=== PATIENT | male | born 1960 | race Caucasian/White ===

== ENCOUNTER 2023-08-24 11:52 | Outpatient (REF) | payer OTHER, SELFPAY ==
[2023-08-24 18:54] LABS: HCT 46.1 % (40.0-50.0); HGB 15.1 g/dL (13.5-17.5); MCH 30.9 pg (27.0-33.0); MCHC 32.8 % (32.0-36.0); MCV 94 fL (80-95); MPV 9.7 fL (8.0-11.0); Platelet Count 304 10^3/uL (130-400); RBC 4.89 10^6/uL (4.36-5.78); RDW 13.1 % (11.8-14.1); RDW-SD 45.6 fL; WBC 6.51 10^3/uL (4.4-10.8)
[2023-08-24 19:01] LABS: Iron 126 ug/dL (65-175); Total Iron Binding Capacity 296 ug/dL (250-450); Transferrin Sat 43 % (20-55)
[2023-08-24 19:19] LABS: ALT 39 U/L (16-63); AST 31 U/L (15-37); Albumin 3.8 g/dL (3.4-5.0); Alkaline Phosphatase 81 U/L (46-116); Anion Gap 8.1 mmol/L (3-11); BUN 21 mg/dL (7-18); Bilirubin, Total 0.9 mg/dL (0.2-1.0); CO2 27.9 mmol/L (21.0-32.0); Calcium 8.9 mg/dL (8.5-10.1); Calculated LDL 144 mg/dL (<100); Chloride 103 mmol/L (98-107); Cholesterol 222 mg/dL (<200); Estimated GFR 85.63 (mL/min/1.73m2); Ferritin 207 ng/mL (26-388); Glucose 104 mg/dL (74-106); HDL Cholesterol 52 mg/dL (40-60); Potassium 4.7 mmol/L (3.5-5.1); Sodium 139 mmol/L (136-145); TSH (W/Ref FT4) 2.98 uIU/mL (0.36-3.74); Triglyceride 131 mg/dL (<150)
== END 2023-08-24 11:53 | disposition home or self-care (01) ==
LOC: NCHCN 11:52
PROVIDERS: PCP Family Medicine Adult Medicine; Visit Provider Nurse Practitioner Family
DX: E78.2 Mixed hyperlipidemia (principal); E03.9 Hypothyroidism, unspecified; E83.110 Hereditary hemochromatosis
CPT/HCPCS: 80053; 80061; 85027; 82728; 83540; 83550; 84443

== ENCOUNTER 2024-09-24 09:23 | Outpatient (REF) | payer OTHER, SELFPAY ==
[2024-09-23 22:21] LABS: Abs Immature Grans 0.01 10^3/uL (0.0-0.06); Absolute Basophil Count 0.06 10^3/uL (0.0-0.2); Absolute Eosinophil Count 0.09 10^3/uL (0.0-0.7); Absolute Lymphocyte Count 1.88 10^3/uL (1.2-3.4); Absolute Monocyte Count 0.49 10^3/uL (0.1-0.8); Absolute Neutrophil Count 4.41 10^3/uL (1.2-6.7); Basophils % 0.9 %; Eosinophils % 1.3 %; HCT 46.1 % (40.0-50.0); HGB 15.3 g/dL (13.5-17.5); Immature Grans % 0.1 %; Lymphocytes % 27.1 %; MCH 31.6 pg (27.0-33.0); MCHC 33.2 % (32.0-36.0); MCV 95 fL (80-95); MPV 9.9 fL (8.0-11.0); Monocytes % 7.1 %; Neutrophils % 63.5 %; Platelet Count 317 10^3/uL (130-400); RBC 4.84 10^6/uL (4.36-5.78); RDW 13.2 % (11.8-14.1); RDW-SD 46.7 fL; WBC 6.94 10^3/uL (4.4-10.8)
[2024-09-23 22:34] LABS: Iron 136 ug/dL (65-175); Total Iron Binding Capacity 312 ug/dL (250-450); Transferrin Sat 44 % (20-55)
[2024-09-23 22:45] LABS: ALT 58 U/L (16-63); AST 44 U/L (15-37); Albumin 3.9 g/dL (3.4-5.0); Alkaline Phosphatase 76 U/L (46-116); Anion Gap 10.2 mmol/L (3-11); BUN 20 mg/dL (7-18); Bilirubin, Total 0.79 mg/dL (0.2-1.0); CO2 25.8 mmol/L (21.0-32.0); Calcium 9.2 mg/dL (8.5-10.1); Calculated LDL 150 mg/dL (<100); Chloride 104 mmol/L (98-107); Cholesterol 244 mg/dL (<200); Ferritin 249 ng/mL (26-388); Glucose 104 mg/dL (74-106); HDL Cholesterol 59 mg/dL (40-60); Potassium 4.4 mmol/L (3.5-5.1); Sodium 140 mmol/L (136-145); TSH 3.24 uIU/mL (0.36-3.74); Total Protein 7.6 g/dL (6.4-8.2); Triglyceride 178 mg/dL (<150)
--- OUTSIDE RECORDS SUMMARY | 2024-09-24 09:30 | XMS_ITS | Encounter Summary ---
Author Organization [facility] [place] [address] Care Team Providers Care Boiler Or Engine Operator Name Role Phone Boris Torres MD Primary Care Provider [phone] Reason for Visit * Reason Onset Date Comments Results 01/31/2012 [email or web address] 01-31-2012 Encounter Details Date Type Department Care Team (Late st Contact Info) Description 01/31/2012 Telephone [facility] [address] [place] [address] Mateus Abreu Jr., MD [address] [place] [address] Results ([email or web address] 01-31-2012) Social History Tobacco Use Types Packs/Day Years Used Date Smoking Tobacco: Former Cigarettes 0 04/26/1978 - 04/26/2008 Sex and Gender Information Value Date Recorded Sex Assigned at Not on file Gender Identity Not on file Sexual Orientation Not on file documented as of this encounter Miscellaneous Notes * Telephone Encounter - Heidi Holm - 02/07/2012 10:57 AM EDT Pt was called and message was given to the pt's that a Holter was set up for 02/27/12 at the [facility] and a f/u visit with Dr Abreu on 03/08/12 at 9:00 am at the [facility]. * Telephone Encounter - Amy Mathews RN - 02/01/2012 9:57 AM EST Pt called and results given. Heidi will call with appts at a later date. * Telephone Encounter - Amy Mathews RN - 02/01/2012 9:49 AM EST Heidi is working on scheduling holter and OV * Telephone Encounter - Amy Mathews RN - 02/01/2012 9:39 AM EST Left a mess for him to call * Telephone Encounter - Mateus Abreu Jr., MD - 01/31/2012 4:39 PM EST Echo showed normal heart size and function, mild TR (within normal limits) So nothing there to cause afib Continue meds, set up holter for 3 weeks from now with ov to follow Please let him know and schedule above documented in this encounter Plan of Treatment Not on file documented as of this encounter Visit Diagnoses Not on filedocumented in this encounter Care Teams Boiler Or Engine Operator Relationship Specialty Start Date End Date Boris Torres MD [address] [address] PCP - General 10/18/10 11/25/18 documented as of this encounter
--- OUTSIDE RECORDS SUMMARY | 2024-09-24 09:30 | XMS_ITS | Encounter Summary ---
Author Organization [facility] [place] [address] Care Team Providers Care Cable Worker Helper Name Role Phone Boris Torres MD Primary Care Provider [phone] Encounter Details Date Type Department Care Team (Late st Contact Info) Description 01/29/2012 External Results [facility] [address] [place] [address] Suyapa Randall, RN Social History Tobacco Use Types Packs/Day Years Used Date Smoking Tobacco: Never Assessed Sex and Gender Information Value Date Recorded Sex Assigned at Not on file Gender Identity Not on file Sexual Orientation Not on file documented as of this encounter Plan of Treatment Not on file documented as of this encounter Procedures Procedure Name Priority Date/Time Associated Diagnosis Comments EXTERNAL LAB RESULTS Routine 01/28/2012 documented in this encounter Results * External Lab Results (01/28/2012) Alanine Aminotransferase 29 10 - 40 Aspartate Aminotransferase 31 14 - 40 Historical Provider CHEMISTRY ORDERAB LES documented in this encounter Visit Diagnoses Not on filedocumented in this encounter Care Teams Cable Worker Helper Relationship Specialty Start Date End Date Boris Torres MD [facility] [address] [place] [address] PCP - General 10/18/10 11/25/18 documented as of this encounter
--- OUTSIDE RECORDS SUMMARY | 2024-09-24 09:30 | XMS_ITS | Encounter Summary ---
Author Organization [facility] Address [address] [place] [address] Care Team Providers Care Marine Engineering Teacher Name Role Phone Tiara Tompkins MD Primary Care Provider [phone] Encounter Details Date Type Department Care Team (Late st Contact Info) Description 03/12/2013 Results Only [facility] - [facility] ([facility]) [address] [place], [place] [id number] Mark Giron MD [address] [place] [address] Social History Tobacco Use Types Packs/Day Years Used Date Smoking Tobacco: Never Assessed Sex and Gender Information Value Date Recorded Sex Assigned at Not on file Gender Identity Not on file Sexual Orientation Not on file documented as of this encounter Plan of Treatment Not on file documented as of this encounter Procedures Procedure Name Priority Date/Time Associated Diagnosis Comments SURGICAL PATHOLOGY Routine 03/12/2013 9:45 EDT documented in this encounter Results * SURGICAL PATHOLOGY (03/12/2013 9:45 EDT) Pathology Report: SURGICAL PATHOLOGY REPORT Reports generated via electronic interface contain original data; however they are lacking the format of the original report. Caution should be taken when reading/interpreti ng unformatted reports. Name: ? MARIELOS APODACA ? Accession #: ? [id number] ? : ? 1960 (Age: 52) ??M ? Collect Date: ? 03/12/2013 ? Location: ? [facility] ? Receive Date: ? 03/12/2013 ? Provider: MARK GIRON MD Copy to: TIARA TOMPKINS MD ? Final Pathologic Diagnosis: A. ?Colon, ascending, polyp, biopsy: 1. ?Tubular adenoma. B. ?Colon, transverse, ? polyp, biopsy: 1. ?Colonic mucosa with no specific pathologic features. See comment. C. ?Colon, sigmoid, polyp, biopsy: 1. ?Tubular adenoma. D. ?Rectum, polyp, biopsy: 1. ?Hyperplastic polyp. Comment: ? Deeper levels were reviewed on block (B). ??(Dr. Lin)/[facility] Document reviewed and electronically signed by: BRUCE CARDOZO MD Report ??Date: 03/17/2013 18:25 By the signature above, the attending physician certifies that he/she has personally conducted a gross and/or microscopic examination of the described specimens and rendered or confirmed the above diagnosis. Specimen(s) Received: A. ?Ascending colon polyp B. ? Transverse colon polyp C. ? Sigmoid polyp D. ? Rectal polyp Clinical History: ? Colorectal screen; D. ? SSA Gross Description: ? Received in formalin labelled Apodaca, Marielos and ascending colon polyp is a single, 0.5 x 0.3 x 0.2 cm, pink-reyna, irregular soft tissue submitted in toto as (A1). Received in formalin labelled Apodaca, Marielos and ? transverse colon polyp are two pink-reyna, irregular soft tissues, 0.4 x 0.3 x 0.1 cm and 0.6 x 0.2 x 0.1 cm. The specimen is entirely submitted as (B1). Received in formalin labelled Apodaca, Marielos and sigmoid polyp is a single, 0.2 x 0.2 x 0.2 cm, pink-reyna, irregular soft tissue submitted in toto as (C1). Received in formalin labelled [place]odaca, Marielos and rectal polyp is a single, 0.3 x 0.2 x 0.2 cm, pink-reyna, irregular soft tissue submitted in toto as (D1). (Eloy Villarreal)/[facility] End of Report RAUL OSCAR 03/12/2013 9:45 EDT 03/12/2013 9:45 EDT Mark Giron MD PATHOLOGY ORDERABLES Performing Organization Address City/State/[facility] Co de Phone Number [facility] [address] [place] [address] documented in this encounter Visit Diagnoses Not on filedocumented in this encounter Care Teams Marine Engineering Teacher Relationship Specialty Start Date End Date Tiara Tompkins MD [address] [place] [address] PCP - General 03/13/13 documented as of this encounter
--- OUTSIDE RECORDS SUMMARY | 2024-09-24 09:30 | XMS_ITS | Referral Summary ---
Author Organization [facility] Address [address] [place] [address] Care Team Providers Care Insulation Cupola Operator Name Role Phone Boris Torres MD Primary Care Provider [phone] Social History Tobacco Use Types Packs/Day Years Used Date Smoking Tobacco: Never Assessed Sex and Gender Information Value Date Recorded Sex Assigned at Not on file Gender Identity Not on file Sexual Orientation Not on file Plan of Treatment Not on file Care Teams Insulation Cupola Operator Relationship Specialty Start Date End Date oBris Torres MD [address] [place] [address] PCP - General 03/13/13
--- OUTSIDE RECORDS SUMMARY | 2024-09-24 09:30 | XMS_ITS | Encounter Summary ---
Author Organization [facility] [place] [address] Care Team Providers Care Cost Accounting Clerk Name Role Phone Boris Torres MD Primary Care Provider [phone] Reason for Visit * Reason Comments Follow-up f/u after holter Encounter Details Date Type Department Care Team (Late st Contact Info) Description 03/08/2012 9:00 AM EDT Follow-Up [facility] [address] [place] [address] Mateus Abreu Jr., MD [address] [place] [address] A-fib (Primary Dx) Social History Tobacco Use Types Packs/Day Years Used Date Smoking Tobacco: Former Cigarettes 0 04/26/1978 - 04/26/2008 Sex and Gender Information Value Date Recorded Sex Assigned at Not on file Gender Identity Not on file Sexual Orientation Not on file documented as of this encounter Last Filed Vital Signs Vital Sign Reading Time Taken Comments Blood Pressure 104/60 03/08/2012 9:08 AM EDT left arm standing Pulse 64 03/08/2012 9:01 AM EDT per ECG Temperature - - Respiratory Rate - - Oxygen Saturation - - Inhaled Oxygen Concentration - - Weight 100.7 kg (222 lb) 03/08/2012 9:0 1 AM EDT Height 182.9 cm (6') 03/08/2012 9:01 AM EDT Body Mass Index 30.11 03/08/2012 9:01 AM EDT documented in this encounter Progress Notes * Mateus Abreu Jr., MD - 03/08/2012 9:21 AM EDT Subjective: Patient ID: Shekhar Edge is a 51 y.o. male. HPI He is feeling well and denies cardiac symptoms. He is doing all his usual activities comfortably. He stopped pradaxa after his holter showed no afib. ROS denies Allergies Allergen Reactions ??? Bactrim (Sulfamethoxazole-trimethoprim) Aches, fever ??? Sulfur Current outpatient prescriptions Medication Sig Dispense Refill ??? PRAMIPEXOLE DI-HCL (MIRAPEX ORAL) Take 50 mg by mouth every evening. ??? metoprolol succinate (TOPROL-XL) 50 mg 24 hr tablet Take 0.5 tablets by mouth daily. 30 tablet ??? ibuprofen (ADVIL;MOTRIN) 800 mg tablet Take 800 mg by mouth every 6 hours as needed. Patient Active Problem List Diagnoses ??? Paroxysmal atrial fibrillation ??? Restless leg syndrome Objective: BP 104/60 Pulse 64 Ht 182.9 cm (6') Wt 100.699 kg (222 lb) BMI 30.11 kg/m2 Physical Exam NAD No JVD/HJR Chest clear Cor RR, 1/6 systolic murmur Abd benign Ext no edema EKG: NSR 64, normal intervals Assessment and Plan: Continue beta reginald, start ASA 325mg for embolism protection Follow up 6 months documented in this encounter Miscellaneous Notes * Communication Body - Mateus Abreu Jr., MD - 03/08/2012 9:25 AM EDT Subjective: Patient ID: Shekhar Edge is a 51 y.o. male. HPI He is feeling well and denies cardiac symptoms. He is doing all his usual activities comfortably. He stopped pradaxa after his holter showed no afib. ROS denies Allergies Allergen Reactions ??? Bactrim (Sulfamethoxazole-trimethoprim) Aches, fever ??? Sulfur Current outpatient prescriptions Medication Sig Dispense Refill ??? PRAMIPEXOLE DI-HCL (MIRAPEX ORAL) Take 50 mg by mouth every evening. ??? metoprolol succinate (TOPROL-XL) 50 mg 24 hr tablet Take 0.5 tablets by mouth daily. 30 tablet ??? ibuprofen (ADVIL;MOTRIN) 800 mg tablet Take 800 mg by mouth every 6 hours as needed. Patient Active Problem List Diagnoses ??? Paroxysmal atrial fibrillation ??? Restless leg syndrome Objective: BP 104/60 Pulse 64 Ht 182.9 cm (6') Wt 100.699 kg (222 lb) BMI 30.11 kg/m2 Physical Exam NAD No JVD/HJR Chest clear Cor RR, 1/6 systolic murmur Abd benign Ext no edema EKG: NSR 64, normal intervals Assessment and Plan: Continue beta reginald, start ASA 325mg for embolism protection Follow up 6 months documented in this encounter Plan of Treatment Not on file documented as of this encounter Visit Diagnoses Diagnosis A-fib- Primary Atrial fibrillation documented in this encounter Care Teams Cost Accounting Clerk Relationship Specialty Start Date End Date Boris Torres MD [address] [address] PCP - General 10/18/10 11/25/18 documented as of this encounter
--- OUTSIDE RECORDS SUMMARY | 2024-09-24 09:30 | XMS_ITS | Encounter Summary ---
Author Organization [facility] [place] [address] Care Team Providers Care Rock Loader Name Role Phone Boris Torres MD Primary Care Provider [phone] Encounter Details Date Type Department Care Team (Late st Contact Info) Description 01/29/2012 External Results [facility] [address] [place] [address] Suyapa Randall, RN Social History Tobacco Use [...] 01/28/2012 documented in this encounter Results * (ABNORMAL) External Lab Results (01/28/2012) Cholesterol, Total 185 Triglyceride 162(A) 40 - 160 HDL Cholesterol 41 35 - 70 LDL Cholesterol 111 Historical Provider CHEMISTRY ORDERAB LES documented in this encounter Visit Diagnoses Not on filedocumented in this encounter Care Teams Rock Loader Relationship Specialty Start Date End Date Boris Torres MD [facility] [address] [place] [address] PCP - General 10/18/10 11/25/18 documented as of this encounter
--- OUTSIDE RECORDS SUMMARY | 2024-09-24 09:30 | XMS_ITS | Encounter Summary ---
Author Organization [facility] [place] [address] Care Team Providers Care Benefit Authorizer Name Role Phone Boris Torres MD Primary Care Provider [phone] Encounter Details Date Type Department Care Team (Late st Contact Info) Description 01/29/2012 Abstract [facility] [address] [place] [address] Suyapa Randall, RN Social History Tobacco Use [...] on filedocumented in this encounter Care Teams Benefit Authorizer Relationship Specialty Start Date End Date Boris Torres MD [facility] [address] [place] [address] PCP - General 10/18/10 11/25/18 documented as of this encounter
--- OUTSIDE RECORDS SUMMARY | 2024-09-24 09:30 | XMS_ITS | Encounter Summary ---
Author Organization [facility] [place] [address] Care Team Providers Care Metal Finish Inspector Name Role Phone Boris Torres MD Primary Care Provider [phone] Encounter Details Date Type Department Care Team (Late st Contact Info) Description 01/29/2012 Telephone [facility] [address] [place] [address] Mateus Abreu Jr., MD [address] [place], [place] [id number] Social History Tobacco Use Types Packs/Day Years Used Date Smoking Tobacco: Never Assessed Sex and Gender Information Value Date Recorded Sex Assigned at Not on file Gender Identity Not on file Sexual Orientation Not on file documented as of this encounter Miscellaneous Notes * Telephone Encounter - Heidi Holm - 01/29/2012 2:44 PM EST Pt was called as well as the PCP and given an appt date of 01/31/12 at 4:00 pm per Evangelina at the [facility]. * Telephone Encounter - Cortney Andre - 01/29/2012 9:57 AM EST Patient was seen by Dr Torres yesterday and needs an appointment. Thinks patient has been in AFIB since Thursday. They were asked to send records. Please call Georgina [phone] to make the appointment. documented in this encounter Plan of Treatment Not on file documented as of this encounter Visit Diagnoses Not on filedocumented in this encounter Care Teams Metal Finish Inspector Relationship Specialty Start Date End Date Boris Torres MD [facility] [address] [place] [address] PCP - General 10/18/10 11/25/18 documented as of this encounter
--- OUTSIDE RECORDS SUMMARY | 2024-09-24 09:30 | XMS_ITS | Encounter Summary ---
Author Organization [facility] [place] [address] Care Team Providers Care Hvac Journeyman Name Role Phone Tiara Tompkins MD Primary Care Provider [phone] Encounter Details Date Type Department Care Team (Late st Contact Info) Description 02/29/2012 External Results [facility] [address] [place] [address] Mateus Abreu Jr., MD [address] [place] [address] Social History Tobacco Use Types Packs/Day Years Used Date Smoking Tobacco: Former Cigarettes 0 04/26/1978 - 04/26/2008 Sex and Gender Information Value Date Recorded Sex Assigned at Not on file Gender Identity Not on file Sexual Orientation Not on file documented as of this encounter Progress Notes * Mateus Abreu Jr., MD - 02/29/2012 11:19 AM EDT Shekhar Edge : 1960 PCP: TIARA TOMPKINS MD Holter Report- [facility], [address] [facility], [facility] [address] Date of application: 02/27/2012 Date of Scan: 02/29/2012 Date of Interpretation: 02/29/2012 Indication: afib Baseline Rhythm: NSR Symptoms: log kept- no symptoms Report: Minimum HR: 43 (sleep) Average HR: 64 Maximum HR: 99 Ventricular- VPC: 5 Couplets: 0 VT: 0 Atrial- APC: 25 Couplets: 1 SVT: 0 Summary: NSR throughout, bradycardia during sleep, rare APC and VPC, no atrial fibrillation documented in this encounter Plan of Treatment Not on file documented as of this encounter Visit Diagnoses Not on filedocumented in this encounter Care Teams Hvac Journeyman Relationship Specialty Start Date End Date Tiara Tompkins MD [address] [address] PCP - General 10/18/10 11/25/18 documented as of this encounter
--- OUTSIDE RECORDS SUMMARY | 2024-09-24 09:30 | XMS_ITS | Encounter Summary ---
Author Organization [facility] [place] [address] Care Team Providers Care Health Plan Specialist Name Role Phone Boris Torres MD Primary Care Provider [phone] Encounter Details Date Type Department Care Team (Latest Contact Info) Description 10/31/2010 8:36 AM EST - 11/01/2010 1:[address] [facility] Hospital Encounter [address] [place] [address] Ana Malhotra MD [facility] [place] [address] Discharge Disposition: Home Social History Tobacco Use Types Packs/Day Years Used Date Smoking Tobacco: Never Assessed Sex and Gender Information Value Date Recorded Sex Assigned at Not on file Gender Identity Not on file Sexual Orientation Not on file documented as of this encounter Plan of Treatment Not on file documented as of this encounter Visit Diagnoses Not on filedocumented in this encounter Care Teams Health Plan Specialist Relationship Specialty Start Date End Date Boris Torres MD [address] [address] PCP - General 10/18/10 11/25/18 documented as of this encounter
--- OUTSIDE RECORDS SUMMARY | 2024-09-24 09:30 | XMS_ITS | Encounter Summary ---
Author Organization [facility] [place] [address] Care Team Providers Care Flight Engineer Manager Name Role Phone Boris Torres MD Primary Care Provider [phone] Encounter Details Date Type Department Care Team (Late st Contact Info) Description 02/02/2012 External Results [facility] [address] [place] [address] Niki Collazo RN Social History Tobacco Use Types Packs/Day [...] encounter Results * External Lab Results (01/28/2012) T4 Total 6.01 Thyroid Stimulating Hormone 3.48 Ferritin 100.1 Historical Provider CHEMISTRY ORDERAB LES documented in this encounter Visit Diagnoses Not on filedocumented in this encounter Care Teams Flight Engineer Manager Relationship Specialty Start Date End Date Boris Torres MD [facility] [address] [place] [address] PCP - General 10/18/10 11/25/18 documented as of this encounter
--- OUTSIDE RECORDS SUMMARY | 2024-09-24 09:30 | XMS_ITS | Encounter Summary ---
Author Organization [facility] [place] [address] Care Team Providers Care Document Management Specialist Name Role Phone Unavailable Primary Care Provider Unavailabl e Encounter Details Date Type Department Care Team (Late st Contact Info) Description 08/31/2010 3:00 PM EDT Office [place] [address] Ana Malhotra MD [facility] [place] [address] Social History Tobacco Use Types Packs/Day Years [...]
--- OUTSIDE RECORDS SUMMARY | 2024-09-24 09:30 | XMS_ITS | Encounter Summary ---
Author Organization [facility] [place] [address] Care Team Providers Care Rn Telehealth Name Role Phone Tiara Tompkins MD Primary Care Provider [phone] Reason for Visit * Reason Comments Atrial Fibrillation Encounter Details Date Type Department Care Team (Late st Contact Info) Description 01/31/2012 8:00 AM EST Office Visit [facility] [address] [place] [address] Mateus Abreu Jr., MD [address] [place] [address] Atrial fib/flutter, transient (Primary Dx) Social History Tobacco Use Types Packs/Day Years Used Date Smoking Tobacco: Former Cigarettes 0 04/26/1978 - 04/26/2008 Sex and Gender Information Value Date Recorded Sex Assigned at Not on file Gender Identity Not on file Sexual Orientation Not on file documented as of this encounter Last Filed Vital Signs Vital Sign Reading Time Taken Comments Blood Pressure 102/64 01/31/2012 8:25 AM EST left arm standing Pulse 54 01/31/2012 8:30 AM EST per ECG Temperature - - Respiratory Rate - - Oxygen Saturation - - Inhaled Oxygen Concentration - - Weight 99.3 kg (219 lb) 01/31/2012 8:24 AM EST Height 182.9 cm (6') 01/31/2012 8:24 AM EST Body Mass Index 29.7 01/31/2012 8:24 AM EST documented in this encounter Progress Notes * Mateus Abreu Jr., MD - 01/31/2012 8:47 AM EST Referring PCP: TIARA TOMPKINS MD Cardiology consultation History: Shekhar Edge is a 51 y.o. old male seen at the request of TIARA TOMPKINS MD for evaluation of new onset atrial fibrillation. He has had brief episodes of fatigue and nausea over the last year but no palpitations or chest pain. On 01/25 he had the onset of nausea, fatigue, mild dyspnea, butno palpitations. This waxed and waned over the next day then progressed to chest fullness and arm aching with worse fatigue. He saw Dr. Tompkins on 01/27 and was found to be in afib. He was started on pradaxa and metoprolol, and mirapex was stopped. The nausea and aching went away by the next day but he feels more slowed down on metoprolol. He is back to doing all his chores comfortably. Allergies Allergen Reactions ??? Bactrim (Sulfamethoxazole-trimethoprim) Aches, fever ??? Sulfur Current outpatient prescriptions Medication Sig Dispense Refill ??? Magnesium 250 mg Tab Take 750 mg by mouth daily. ??? metoprolol succinate (TOPROL-XL) 50 mg 24 hr tablet Take 50 mg by mouth daily. ??? dabigatran (PRADAXA) 150 mg capsule Take 150 mg by mouth 2 times daily. ??? ibuprofen (ADVIL;MOTRIN) 800 mg tablet Take 800 mg by mouth every 6 hours as needed. Patient Active Problem List Diagnoses ??? Paroxysmal atrial fibrillation ??? Restless leg syndrome Coronary risk factors: Smoking:former, quit 3 years ago Diabetes:no Hypercholesterolemia:no Hypertension:no Family history of premature disease:both parents CAD in 70s Cardiac tests: none SH: works as a negrete, also keeps cows, lives with , no tobacco, variable caffeine ROS: all systems negative except as above Physical Exam: BP 102/64 Pulse 54 Ht 182.9 cm (6') Wt 99.338 kg (219 lb) BMI 29.70 kg/m2 General: WD, WN Skin: no rash or other lesions HEENT: no xanthoma Neck: No JVD, HJR, or carotid abnormalities, thyroid normal Lungs: Clear Cor: RR, normal S1, S2. PMI not displaced. No murmur or gallop Abd: soft, no L/S/K enlargement or bruits Ext: Pulses preserved, equal bilaterally, no edema, cyanosis or clubbing Musculoskeletal: no muscle tenderness, no joint deformities Neuro: grossly nonfocal Psych: normal affect, appropriate EKG: SB 54, normal intervals, no ST/T change Lab data: Labs Latest Ref Rng 01/28/2012 CHOLESTEROL TOTAL 185 HDL 35 - 70 41 LDL CHOLESTEROL 111 TRIGLYCERIDES 40 - 160 162 (A) K 3.8, Mg 2.1, Trop 0.01 Assessment: 1) New onset afib with unusual symptoms, now returned to NSR. He may have had brief episodes in thepast. No clear cause on exam-will need an echo to rule out structural heart disease. Ischemia unlikely given negative troponin after prolonged symptoms. If echo negative continue pradaxa for at least4 weeks then consider holter to assess for silent afib-if negative could switch to ASA 2) bradycardia-with fatigue- cut back dose of beta reginald 3) lipids- not ideal, especially triglycerides-reviewed diet-gradual weight loss Plan: 1) A discussion was held concerning the patient's chief complaints, the presumptive diagnosis(es) and the options for further evaluation and management. Reviewed the assessment above and the recommendations below in detail. 2) Cut metoprolol to 25mg QD 3) Echo today-follow up depends on result documented in this encounter Miscellaneous Notes * Communication Body - Mateus Abreu Jr., MD - 01/31/2012 10:06 AM EST Referring PCP: TIARA TOMPKINS MD Cardiology consultation History: Shekhar Edge is a 51 y.o. old male seen at the request of TIARA TOMPKINS MD for evaluation of new onset atrial fibrillation. He has had brief episodes of fatigue and nausea over the last year but no palpitations or chest pain. On 01/25 he had the onset of nausea, fatigue, mild dyspnea, butno palpitations. This waxed and waned over the next day then progressed to chest fullness and arm aching with worse fatigue. He saw Dr. Tompkins on 01/27 and was found to be in afib. He was started on pradaxa and metoprolol, and mirapex was stopped. The nausea and aching went away by the next day but he feels more slowed down on metoprolol. He is back to doing all his chores comfortably. Allergies Allergen Reactions ??? Bactrim (Sulfamethoxazole-trimethoprim) Aches, fever ??? Sulfur Current outpatient prescriptions Medication Sig Dispense Refill ??? Magnesium 250 mg Tab Take 750 mg by mouth daily. ??? metoprolol succinate (TOPROL-XL) 50 mg 24 hr tablet Take 50 mg by mouth daily. ??? dabigatran (PRADAXA) 150 mg capsule Take 150 mg by mouth 2 times daily. ??? ibuprofen (ADVIL;MOTRIN) 800 mg tablet Take 800 mg by mouth every 6 hours as needed. Patient Active Problem List Diagnoses ??? Paroxysmal atrial fibrillation ??? Restless leg syndrome Coronary risk factors: Smoking:former, quit 3 years ago Diabetes:no Hypercholesterolemia:no Hypertension:no Family history of premature disease:both parents CAD in 70s Cardiac tests: none SH: works as a negrete, also keeps cows, lives with , no tobacco, variable caffeine ROS: all systems negative except as above Physical Exam: BP 102/64 Pulse 54 Ht 182.9 cm (6') Wt 99.338 kg (219 lb) BMI 29.70 kg/m2 General: WD, WN Skin: no rash or other lesions HEENT: no xanthoma Neck: No JVD, HJR, or carotid abnormalities, thyroid normal Lungs: Clear Cor: RR, normal S1, S2. PMI not displaced. No murmur or gallop Abd: soft, no L/S/K enlargement or bruits Ext: Pulses preserved, equal bilaterally, no edema, cyanosis or clubbing Musculoskeletal: no muscle tenderness, no joint deformities Neuro: grossly nonfocal Psych: normal affect, appropriate EKG: SB 54, normal intervals, no ST/T change Lab data: Labs Latest Ref Rng 01/28/2012 CHOLESTEROL TOTAL 185 HDL 35 - 70 41 LDL CHOLESTEROL 111 TRIGLYCERIDES 40 - 160 162 (A) K 3.8, Mg 2.1, Trop 0.01 Assessment: 1) New onset afib with unusual symptoms, now returned to NSR. He may have had brief episodes in thepast. No clear cause on exam-will need an echo to rule out structural heart disease. Ischemia unlikely given negative troponin after prolonged symptoms. If echo negative continue pradaxa for at least4 weeks then consider holter to assess for silent afib-if negative could switch to ASA 2) bradycardia-with fatigue- cut back dose of beta reginald 3) lipids- not ideal, especially triglycerides-reviewed diet-gradual weight loss Plan: 1) A discussion was held concerning the patient's chief complaints, the presumptive diagnosis(es) and the options for further evaluation and management. Reviewed the assessment above and the recommendations below in detail. 2) Cut metoprolol to 25mg QD 3) Echo today-follow up depends on result documented in this encounter Plan of Treatment Not on file documented as of this encounter Visit Diagnoses Diagnosis Atrial fib/flutter, transient- Primary Atrial fibrillation documented in this encounter Care Teams Rn Telehealth Relationship Specialty Start Date End Date [place] [address] PCP - General 10/18/10 11/25/18 documented as of this encounter
--- OUTSIDE RECORDS SUMMARY | 2024-09-24 09:30 | XMS_ITS | Clinical Summary ---
Author Organization [facility] Address [address] [place] [id number] Care Team Providers Care Research Editor Name Role Phone Boris Torres MD Primary Care Provider [phone] Social History Tobacco Use Types Packs/Day Years Used Date Smoking Tobacco: Never Assessed Sex and Gender Information Value Date Recorded Sex Assigned at Not on file Gender Identity Not on file Sexual Orientation Not on file Plan of Treatment Health Maintenance Due Date Last Done Comments Hepatitis C Screen 1961 RSV Immunization ( o r 60+ Years) (1 - 1-dose 60+ series) 2021 COVID-19 Vaccine ( season) 2023 Care Teams Research Editor Relationship Specialty Start Date End Date Boris Torres MD [address] [place] [address] PCP - General 03/13/13
--- OUTSIDE RECORDS SUMMARY | 2024-09-24 09:30 | XMS_ITS | Clinical Summary ---
Author Organization [facility] [place] [address] Care Team Providers Care Musical Instrument Supervisor Name Role Phone Unknown Primary Care Provider Unavailabl e Allergies Active Allergy Reactions Criticality Noted Date Comments Sulfamethoxazole-Trimethoprim 2011 Aches, fever Sulfur 01/29/2012 Medications Medication Sig Dispensed Refills Start Date End Date Status PRAMIPEXOLE DI-HCL (MIRAPEX ORAL) Take 25 mg by mouth every evening. Active Active Problems Problem Noted Date Diagnosed Date Paroxysmal atrial fibrillation 01/31/2012 Restless leg syndrome 01/31/2012 Immunizations Name Administration Dates Next Due Influenza Vaccine, Whole 08/26/2010 Social History Tobacco Use Types Packs/Day Years Used Date Smoking Tobacco: Former Cigarettes 0 04/26/1978 - 04/26/2008 Sex and Gender Information Value Date Recorded Sex Assigned at Not on file Gender Identity Not on file Sexual Orientation Not on file Last Filed Vital Signs Vital Sign Reading Time Taken Comments Blood Pressure 140/80 10/14/2012 4:34 PM EST Pulse 60 10/14/2012 4:34 PM EST Temperature - - Respiratory Rate 16 10/14/2012 4:34 PM EST Oxygen Saturation - - Inhaled Oxygen Concentration - - Weight 102.1 kg (225 lb) 10/14/2012 4:34 PM EST Height 182.9 cm (6') 10/14/2012 4:34 PM EST Body Mass Index 30.52 10/14/2012 4:34 PM EST Plan of Treatment Health Maintenance Due Date Last Done Comments CT Colonography 1961 Colonoscopy 1961 Colorectal Cancer Screening 1961 FIT DNA 1961 FIT 1961 Sigmoidoscopy (10 year) with FIT yearly 1961 Sigmoidoscopy 1961 HIV screen 1979 Hepatitis C Screening 1979 Tetanus/Diphtheria/Pertussis Vaccines (1 - Tdap) 11/28 Zoster vaccine (1 of 2) 2011 Advance Directive 2016 Lipid Screening 01/27/2017 01/28/2012 Covid-19 Vaccine (1 - season) 2024 Influenza (Flu) vaccine (1 o f 1 - Influenza standard series) 07/27/2024 08/26/2010 Procedures Procedure Name Priority Date/Time Associated Diagnosis Comments EXTERNAL LAB RESULTS Routine 01/28/2012 from Last 3 Months or Most Recently Relevant to Health Maintenance Results * (ABNORMAL) External Lab Results (01/28/2012) Cholesterol, Total 185 Triglyceride 162(A) 40 - 160 HDL Cholesterol 41 35 - 70 LDL Cholesterol 111 Historical Provider CHEMISTRY ORDERAB LES from Last 3 Months or Most Recently Relevant to Health Maintenance Care Teams Musical Instrument Supervisor Relationship Specialty Start Date End Date Unknown None PCP - General 11/26/18
--- OUTSIDE RECORDS SUMMARY | 2024-09-24 09:30 | XMS_ITS | Encounter Summary ---
Author Organization [facility] [place] [address] Care Team Providers Care Gang Drill Operator Name Role Phone Boris Torres MD Primary Care Provider [phone] Reason for Visit * Reason Onset Date Comments Results 02/29/2012 [email or web address] Encounter Details Date Type Department Care Team (Late st Contact Info) Description 02/29/[address] [address] Mateus Abreu Jr., MD [address] [place] [address] Results ([email or web address]) Social History Tobacco Use Types Packs/Day Years Used Date Smoking Tobacco: Former Cigarettes 0 04/26/1978 - 04/26/2008 Sex and Gender Information Value Date Recorded Sex Assigned at Not on file Gender Identity Not on file Sexual Orientation Not on file documented as of this encounter Miscellaneous Notes * Telephone Encounter - Amy Mathews RN - 02/29/2012 11:52 AM EDT Results given to pt. * Telephone Encounter - Mateus Abreu Jr., MD - 02/29/2012 11:40 AM EDT holter showed no afib Can stop pradaxa when runs out of pills, continue other meds Will discuss details at office visit documented in this encounter Plan of Treatment Not on file documented as of this encounter Visit Diagnoses Not on filedocumented in this encounter Care Teams Gang Drill Operator Relationship Specialty Start Date [place] [address] PCP - General 10/18/10 11/25/18 documented as of this encounter
== END 2024-09-24 09:24 | disposition home or self-care (01) ==
LOC: NCHCN 09:23
PROVIDERS: PCP Family Medicine Adult Medicine; Visit Provider Nurse Practitioner Family
DX: E83.110 Hereditary hemochromatosis (principal); E03.9 Hypothyroidism, unspecified; E78.2 Mixed hyperlipidemia
CPT/HCPCS: 80053; 80061; 82728; 83540; 83550; 84443; 85025

== ENCOUNTER 2025-09-28 10:14 | Outpatient (REF) | payer SELFPAY ==
[2025-09-28 19:12] LABS: HCT 45.5 % (40.0-50.0); HGB 15.0 g/dL (13.5-17.5); MCH 30.9 pg (27.0-33.0); MCHC 33.0 % (32.0-36.0); MCV 94 fL (80-95); MPV 9.9 fL (8.0-11.0); Platelet Count 306 10^3/uL (130-400); RBC 4.85 10^6/uL (4.36-5.78); RDW 13.2 % (11.8-14.1); RDW-SD 45.0 fL; WBC 6.75 10^3/uL (4.4-10.8)
[2025-09-28 19:37] LABS: ALT 34 U/L (16-63); AST 28 U/L (15-37); Albumin 3.9 g/dL (3.4-5.0); Alkaline Phosphatase 64 U/L (46-116); Anion Gap 7.5 mmol/L (3-11); BUN 17 mg/dL (7-18); Bilirubin, Total 0.9 mg/dL (0.2-1.0); CO2 29.5 mmol/L (21.0-32.0); Calcium 9.2 mg/dL (8.5-10.1); Chloride 102 mmol/L (98-107); Cholesterol 227 mg/dL (<200); Ferritin 258 ng/mL (26-388); Glucose 110 mg/dL (74-106); HDL Cholesterol 48 mg/dL (>or=40); Potassium 4.7 mmol/L (3.5-5.1); Sodium 139 mmol/L (136-145); TSH 2.49 uIU/mL (0.36-3.74); Total Protein 7.6 g/dL (6.4-8.2)
[2025-09-28 19:38] LABS: Iron 120 ug/dL (65-175); Total Iron Binding Capacity 313 ug/dL (250-450)
== END 2025-09-28 10:15 | disposition home or self-care (01) ==
LOC: NCHCN 10:14
PROVIDERS: PCP Family Medicine Adult Medicine; Visit Provider Nurse Practitioner Family
DX: E83.110 Hereditary hemochromatosis (principal); E03.9 Hypothyroidism, unspecified; E78.2 Mixed hyperlipidemia
CPT/HCPCS: 80053; 80061; 85027; 82728; 83540; 83550; 84443